=== PATIENT | male | born 1965 | race Caucasian/White ===

== ENCOUNTER 2024-12-28 14:19 | Observation (INO) | payer OTHER ==
[2024-12-28] MEDS ORDERED: Sodium Chloride 0.9% 10 ML Syringe FLUSH PRN (14:36)
[2024-12-28 14:50] LABS: BASOPHILS ABSOLUTE AUTO 0.0 K/mm3 (0.0-0.2); BASOPHILS PERCENT AUTO 0.5 % (0.0-1.0); EOSINOPHILS ABSOLUTE AUTO 0.1 K/mm3 (0.0-0.4); EOSINOPHILS PERCENT AUTO 0.7 % (0.0-6.0); IMMATURE GRAN ABSOLUTE AUTO 0.03 K/mm3 (0.00-0.05); IMMATURE GRAN PERCENT AUTO 0.3 % (0.0-0.4); LYMPHOCYTES ABSOLUTE AUTO 1.7 K/mm3 (1.0-4.8); LYMPHOCYTES PERCENT AUTO 19.3 % (24.0-44.0); MEAN PLATELET VOLUME 9.4 fl (9.4-12.4); MONOCYTES ABSOLUTE AUTO 0.5 K/mm3 (0.0-0.8); MONOCYTES PERCENT AUTO 5.3 % (0.0-8.0); NEUTROPHILS ABSOLUTE AUTO 6.4 K/mm3 (1.8-7.7); NEUTROPHILS PERCENT AUTO 73.9 % (41.0-71.0); NRBC ABSOLUTE 0.00 (0.00-0.02); NRBC PERCENT 0.0 % (0.0-0.2); PLATELET COUNT,PLT 337 K/mm3 (150-400); RED BLOOD CELL COUNT 4.00 M/mm3 (4.52-5.90); WHITE BLOOD CELL COUNT,WBC 8.71 K/mm3 (3.9-11.3)
[2024-12-28 15:13] LABS: A/G RATIO 1.1 (1-2); ALANINE AMINOTRANSFERASE,ALT 31.0 U/L (16-63); ASPARTATE AMNIOTRANSFERASE,AST 27.0 U/L (15-37); BILIRUBIN TOTAL 0.6 mg/dL (0.2-1.0); BLOOD UREA NITROGEN,BUN 19.0 mg/dL (7-18); CREATININE 1.0 mg/dL (0.7-1.3); EST CRCL DRUG DOSING (CG) 83.14 mL/min; ESTIMATED GFR 87.0 mL/min (>60); GLUCOSE RANDOM 183.0 mg/dL (70-99); PROTEIN TOTAL,TP 6.6 g/dl (6.4-8.2)
[2024-12-28 15:23] LABS: CARBON DIOXIDE,CO2 17.0 mEq/L (21-32); CHLORIDE,CL 98.0 mEq/L (98-107); POTASSIUM,K 3.2 mEq/L (3.5-5.1); SODIUM,NA 132.0 mEq/L (136-145)
[2024-12-28] MEDS: Sodium Chloride 0.9% 10 ML Syringe FLUSH ONE (15:23)
[2024-12-28] MEDS: Iopamidol 612 MG/ML 100 ML Bottle IVPUSH ONE (15:23)
[2024-12-28] MEDS: Iopamidol 755 Mg/ML 100 ML Bottle IVPUSH ONE (16:55)
[2024-12-28 18:39] LABS: BASOPHILS ABSOLUTE AUTO 0.0 K/mm3 (0.0-0.2); BASOPHILS PERCENT AUTO 0.4 % (0.0-1.0); EOSINOPHILS ABSOLUTE AUTO 0.1 K/mm3 (0.0-0.4); EOSINOPHILS PERCENT AUTO 0.6 % (0.0-6.0); IMMATURE GRAN ABSOLUTE AUTO 0.03 K/mm3 (0.00-0.05); IMMATURE GRAN PERCENT AUTO 0.4 % (0.0-0.4); LYMPHOCYTES ABSOLUTE AUTO 2.2 K/mm3 (1.0-4.8); LYMPHOCYTES PERCENT AUTO 28.2 % (24.0-44.0); MEAN PLATELET VOLUME 9.2 fl (9.4-12.4); MONOCYTES ABSOLUTE AUTO 0.5 K/mm3 (0.0-0.8); MONOCYTES PERCENT AUTO 6.2 % (0.0-8.0); NEUTROPHILS ABSOLUTE AUTO 5.1 K/mm3 (1.8-7.7); NEUTROPHILS PERCENT AUTO 64.2 % (41.0-71.0); NRBC ABSOLUTE 0.00 (0.00-0.02); NRBC PERCENT 0.0 % (0.0-0.2); PLATELET COUNT,PLT 304 K/mm3 (150-400); RED BLOOD CELL COUNT 3.94 M/mm3 (4.52-5.90); WHITE BLOOD CELL COUNT,WBC 7.94 K/mm3 (3.9-11.3)
[2024-12-28 18:57] LABS: INR 1.03
[2024-12-28 18:58] LABS: PTT,PARTIAL THROMBOPLSTIN TIME 26.2 SECONDS (21.7-31.4)
[2024-12-28] MEDS: Lactated Ringers 1,000 ML IV SCH (19:01)
[2024-12-29 07:39] LABS: MEAN PLATELET VOLUME 9.5 fl (9.4-12.4); NRBC ABSOLUTE 0.00 (0.00-0.02); NRBC PERCENT 0.0 % (0.0-0.2); PLATELET COUNT,PLT 274 K/mm3 (150-400); RED BLOOD CELL COUNT 3.68 M/mm3 (4.52-5.90); WHITE BLOOD CELL COUNT,WBC 4.53 K/mm3 (3.9-11.3)
== END 2024-12-29 09:54 | disposition home or self-care (01) ==
LOC: JD.ED 14:19 → JD.MS 18:20
PROVIDERS: ADMIT Surgery; ATTEND Surgery
DX: K92.2 Gastrointestinal hemorrhage, unspecified (principal); N40.0 Benign prostatic hyperplasia without lower urinary tract symptoms; Z72.0 Tobacco use; Z79.899 Other long term (current) drug therapy; Z98.890 Other specified postprocedural states
CPT/HCPCS: 36415; 72191; 74175; 74177; 80053; 85025; 85027; 85610; 85730; 86850; 86900; 86901; 93005; 96360; 96361; 99285; G0378; J7030; J7120; Q9967; 93010